=== PATIENT | female | born 1960 | race Caucasian/White ===

== ENCOUNTER 2016-10-11 08:20 | Inpatient (IN) | payer OTHER ==
[2016-10-06 10:11] LABS: BASOPHILS 0.1 %; BASOPHILS ABSOLUTE 0.01 10/3/uL (0.0-0.16); EOSINOPHILS 2.2 %; EOSINOPHILS ABSOLUTE 0.19 10/3/uL (0.0-0.53); HEMATOCRIT 40.1 % (36.0-48.0); IMMATURE GRANULOCYTES 0.2 %; IMMATURE GRANULOCYTES ABSOLUTE 0.02 10/3/uL (0.0-0.11); LYMPHOCYTES 28.7 %; LYMPHOCYTES ABSOLUTE 2.52 10/3/uL (0.67-4.30); MANUAL DIFF NO %; MEAN CORPUS HGB CONC 32.4 g/dL (32.0-36.0); MEAN CORPUSCULAR HEMOGLOB 27.4 pg (26.0-34.0); MEAN CORPUSCULAR VOLUME 84.4 fL (80-100); MEAN PLATELET VOLUME 9.6 fL (9.2-13.0); MONOCYTES ABSOLUTE 0.44 10/3/uL (0.21-1.20); NEUTROPHILS 63.8 %; NEUTROPHILS ABSOLUTE 5.61 10/3/uL (2.02-8.40); PLATELET COUNT 234 10/3/uL (150-400); RED CELL COUNT 4.75 10/6/uL (4.0-5.6); WHITE BLOOD CELLS 8.8 10/3/uL (4.5-10.5)
[2016-10-06 10:18] LABS: PARTIAL THROMBO TIME 25.2 SEC (22.5-37.2); PROTIME (NOT ORD) 13.1 SEC (12.0-14.5)
[2016-10-06 10:31] LABS: A/G RATIO 0.9 (0.7-1.9); ALBUMIN 3.4 G/DL (3.5-5.0); ALKALINE PHOSPHATASE 142 U/L (45-117); BUN (BLOOD UREA NITROGEN) 18 MG/DL (6-23); CALCIUM, SERUM 8.4 MG/DL (8.5-10.4); CHLORIDE, SERUM 101 MMOL/L (96-112); CO2 (CARBON DIOXIDE) 26 MMOL/L (24-34); CREATININE 0.92 MG/DL (0.55-1.02); GFR AFRICAN AMERICAN 80 ML/MIN (>=60); GFR NON AFRICAN AMERICAN 69 ML/MIN (>=60); GLOBULIN 3.6 G/DL (2.5-4.1); GLUCOSE, SERUM 221 MG/DL (60-99); SGOT(AST) 16 U/L (5-40); SGPT(ALT) 28 U/L (5-65); SODIUM, SERUM 138 MMOL/L (135-148); TOTAL BILIRUBIN 0.3 MG/DL (0-1.2)
--- NOTE | ~2016-10-11 | PREOPHP ---
PreOp History and Physical [address] [place]. [address] NAME: TATIANA COLEY : 58 STATUS : ADM IN [facility]#: [id number] AGE: 56 ADM/REG DATE : 10/11/16 MR#: [id number] REPORT SERV DATE: 10/11/16 DICTATED BY: RANDA MONTGOMERY JR. DATE: 10/11/16 REPORT STATUS : Draft TRANSCRIBED BY: ADALID DATE: 10/11/16 CHIEF COMPLAINT: Retroperitoneal tumor. HISTORY OF PRESENT ILLNESS: This is a 56-year-old female who had presented with some left- sided discomfort and lower extremity discomfort. She was found to have at least 4 to 5 cm mass deep in the left psoas muscle. This initially was thought to be possibly lipomatous, but further review demonstrated this was indeterminate and she is admitted for resection. PAST MEDICAL HISTORY: Remarkable for history of GE reflux disease, gastritis, diabetic gastroparesis, and irritable bowel syndrome, hypercholesterolemia, cervical dysplasia, hepatitis, hypertension, COPD, tobacco use, and diabetes. PAST SURGICAL HISTORY: Remarkable for cholecystectomy, appendectomy, hysterectomy, cataract surgery, and breast reduction. MEDICATIONS: Listed and reviewed. ALLERGIES: TO SHRIMP. REVIEW OF SYSTEMS: GENERAL: Fatigue. SKIN: Negative. HEENT: Negative. NECK: Negative. RESPIRATORY: Negative. BREASTS: Negative. CARDIOVASCULAR: Negative. GI: As above with diarrhea. : Negative. MUSCULOSKELETAL: As above. NEUROLOGIC: All negative. PSYCHIATRIC: All negative. ENDOCRINE: All negative. HEMATOLOGIC: All negative. PHYSICAL EXAMINATION: GENERAL: Exam shows an obese female, who is in no acute distress. VITAL SIGNS: Recorded. HEENT: Head and neck exam shows pupils equal and reactive. No icteric changes. Mucous membranes are moist. NECK: Supple. There is no mass or thyromegaly. LUNGS: Clear bilaterally. CARDIOVASCULAR: Normal S1 and S2 without murmur. ABDOMEN: Soft, nontender and there is no palpable mass or hepatosplenomegaly. EXTREMITIES: Show no clubbing, cyanosis, or edema. NEUROLOGIC: Alert and oriented. No focal findings. Appropriate affect. IMPRESSION: Retroperitoneal tumor, indeterminate. PreOp History and Physical [address] [address] NAME: TATIANA COLEY : 58 STATUS : ADM IN PAT#: [id number] AGE: 56 ADM/REG DATE : 10/11/16 MR#: [id number] REPORT SERV DATE: 10/11/16 DICTATED BY: RANDA MONTGOMERY JR. DATE: 10/11/16 REPORT STATUS : Draft TRANSCRIBED BY: ADALID DATE: 10/11/16 PLAN: We will proceed with exploration for resection. Details of risks of the operation have been discussed with the patient. They understand and agree. PASTOR/ADALID Randa Montgomery Jr., M.D. / [id number] CC: Randa Montgomery Jr., M.D.
--- NOTE | ~2016-10-11 | OP ---
Record Of Operation [facility] [address] [place]. [address] NAME: TATIANA COLEY : 58 STATUS : ADM IN PAT#: [id number] AGE: 56 ADM/REG DATE : 10/11/16 MR#: [id number] REPORT SERV DATE: 10/11/16 DICTATED BY: RANDA BOLIVAR JR. DATE: 10/11/16 REPORT STATUS : Draft TRANSCRIBED BY: MODNolvia DATE: 10/11/16 DATE OF PROCEDURE: 10/11/2016 SURGEON: Randa Bolivar M.D. TOBACCO WEIGHER: Christi Rosado. PROCEDURE: Exploratory laparotomy resection of retroperitoneal tumor (5.5 cm). PREOPERATIVE DIAGNOSIS: Retroperitoneal tumor. POSTOPERATIVE DIAGNOSIS: Retroperitoneal tumor . ANESTHESIA: General. INDICATIONS: This patient has presented with lower extremity discomfort. Imaging demonstrated a soft tissue mass located within the left-sided psoas major muscle and the retroperitoneum. This was indeterminate by imaging. Resection was indicated for definitive diagnosis and treatment. FINDINGS: On exploration of the abdomen, there were adhesions from previous surgery. The x- rays of the retroperitoneum did show mass within the psoas muscle just medial to the upper pole of the kidney. This was excised completely without significant removal of the muscle with it. The examination with pathology showed a low-grade schwannoma. No other apparent findings were seen. The outlines excision site were marked with clips. DESCRIPTION OF PROCEDURE: With adequate general anesthesia, the patient was placed in supine position. The abdomen was prepped and draped sterilely. A midline incision was made. Dissection was carried down sharply through the subcutaneous tissues. The fascia and perineum were opened. Underlying adhesions were dissected sharply findings. The left colon was mobilized by attachments reflected this medially and this allowed excision of the retroperitoneum. The kidney and left ureter were identified. These were retracted laterally, and the psoas was exposed. Tumor was palpable and the muscle was then opened with electrocautery and then with blunt dissection, the mass was easily freed from the surrounding tissues and attachments divided. It was submitted to pathology as noted. Bleeders controlled with electrocautery and also with the EnSeal device and with Surgiflo. Then, the wound was closed in approximate fashion in running 0 PDS suture, subcutaneous with 3-0 Vicryl, subdermal or deep dermal with 3-0 Monocryl, and subcuticular Monocryl. An overlay negative pressure dressing was placed. The patient left the operating room in satisfactory condition. ESTIMATED BLOOD LOSS: 50 mL. J/MODL Record Of Operation [address] [address] NAME: TATIANA COLEY : 58 STATUS : ADM IN PAT#: [id number] AGE: 56 ADM/REG DATE : 10/11/16 MR#: [id number] REPORT SERV DATE: 10/11/16 DICTATED BY: RANDA BOLIVAR JR. DATE: 10/11/16 REPORT STATUS : Draft TRANSCRIBED BY: ADALID DATE: 10/11/16 Randa Bolivar Jr., M.D. / [id number] CC: Randa Bolivar Jr., M.D.
--- NOTE | ~2016-10-11 | CN ---
Consultation Report [facility] [address] [place]. [address] NAME: TATIANA COLEY : 58 STATUS : ADM IN [facility]#: [id number] AGE: 56 ADM/REG DATE : 10/11/16 MR#: [id number] REPORT SERV DATE: 10/13/16 DICTATED BY: DATE: REPORT STATUS : Draft TRANSCRIBED BY: MODL DATE: 10/13/16 CONSULTATION DATE OF CONSULTATION: REASON FOR CONSULTATION: Acute kidney injury. HISTORY OF PRESENT ILLNESS: Ms. Coley is a 56-year-old white female, who presented to the hospital on 10/11/2016 for an elective removal of the retroperitoneal tumor by Dr. Montgomery. Her baseline creatinine looked to be 0.7 to 0.9. Creatinine day of this consultation up to 2.7. Denies any history of kidney disease in the past, but does have extensive history that includes diabetes, hypertension, and cardiomyopathy with EF of 35%, recent negative heart catheterization. 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 Denies any shortness of breath, chest pain, tightness, or pressure. No nausea, vomiting, and still sedated with pain medicine postoperatively. Has had a Kaplan since surgery. PAST MEDICAL HISTORY: Diabetes, hypertension, COPD, hyperlipidemia, hepatitis, irritable bowel syndrome, reflux, gastroparesis, cholecystectomy, appendectomy, hysterectomy, breast reduction. ALLERGIES: SHELLFISH. SOCIAL HISTORY: . Quit smoking approximately forty days prior to the consultation. No alcohol or illicit drug use. MEDICATIONS: At the time of consultation, losartan which was stopped just prior to my consultation, pravastatin, Protonix, paroxetine, insulin, heparin, and Coreg. FAMILY MEDICAL HISTORY: Negative for any end-stage renal disease. REVIEW OF SYSTEMS: 12-point review of systems was obtained, negative with the exception of that in HPI. PHYSICAL EXAMINATION: VITAL SIGNS: Temp 97.2, blood pressure 112/49, pulse 70, respiratory rate 18, O2 saturation 96% on 4 L. GENERAL: This is a pleasant cooperative white female. Awake, alert, oriented, but very drowsy. HEENT: Normocephalic, atraumatic. Conjunctivae clear. Sclerae anicteric. Pupils are equal and round. Oral mucosa is moist. NECK: Supple. Carotids are brisk. Neck veins flat. No lymphadenopathy. Neck is very thick. Consultation Report [facility] [address] [place]. [address] NAME: TATIANA COLEY : 58 STATUS : ADM IN PAT#: [id number] AGE: 56 ADM/REG DATE : 10/11/16 MR#: [id number] REPORT SERV DATE: 10/13/16 DICTATED BY: DATE: REPORT STATUS : Draft TRANSCRIBED BY: MODL DATE: 10/13/16 RESPIRATIONS: Even and labored. She has rhonchi throughout. HEART: Rate is regular. I did not hear any murmur, rub, or gallop. ABDOMEN: Obese soft, and postop tenderness. I could not hear any bowel sounds. No CVA tenderness. BACK: Within normal limits. EXTREMITIES: No edema, cyanosis, or clubbing. Kaplan to bedside drainage. NEURO: Generalized weakness. Mood and affect, flat, but appropriate. PERTINENT LABS AND X-RAYS: Sodium 135, potassium 5, chloride 99, BUN of 33, creatinine of 2.7, calcium 8.1, magnesium 2.5. WBCs 11.6, H and H 11 and 35, platelets 254,000. IMPRESSION: 1. Oliguric acute kidney injury. 2. Hypotension. 3. Cardiomyopathy with EF of 35%. 4. Status post retroperitoneal tumor removal, postop day 1. 5. Diabetes. 6. Hypertension. 7. Chronic obstructive pulmonary disease. PLAN: Diuretic challenge. She has already had 2.8 L of IV fluids. Stat labs. Stat chest x ray. Follow I's and O's. No indication for renal replacement therapy at this time. We will follow up on the studies. ARB has been held. We will follow along with you. Thank you for the consultation. GALEN/ADALID ARI Salas / [id number] CC: Rafael Rubio Jr., M.D.
--- NOTE | ~2016-10-11 | DS ---
Discharge Summary [facility] [address] [place]. [address] NAME: TATIANA COLEY : 58 STATUS : DIS IN PAT#: [id number] AGE: 56 ADM/REG DATE : 10/11/16 MR#: [id number] REPORT SERV DATE: 10/26/16 DICTATED BY: RANDA BOLIVAR JR. DATE: 10/25/16 REPORT STATUS : Draft TRANSCRIBED BY: ADALID DATE: 10/25/16 Data Collection from hospitalization DISCHARGE DIAGNOSES: 1. Retroperitoneal tumor. 2. Diabetes. 3. Hypertension. 4. Gastroesophageal reflux disease. 5. Gastritis. 6. Diabetic gastroparesis. 7. Irritable bowel syndrome. 8. Hypercholesterolemia. 9. Cervical dysplasia. 10.Hepatitis. 11.Chronic obstructive pulmonary disease. 12.Tobacco use. CONSULTATION: AMARI Salas PROCEDURES PERFORMED: Exploratory laparotomy, resection of retroperitoneal tumor (5.5 cm), 10/11/2016. PATHOLOGY: Soft tissue excision, retroperitoneal tumor-schwannoma. DISCHARGE MEDICATIONS: ProAir one puff via inhaler daily as needed, aspirin 81 mg every day at bedtime, Tessalon 200 mg three times a day as needed, Coreg 6.25 mg twice a day, Questran Light one packet twice a day as needed, erythromycin 250 mg at bedtime, Amaryl 1 mg every morning, hydrochlorothiazide 25 mg every evening, Glucophage XR 1500 mg with supper, Prilosec 40 mg every day at bedtime, Percocet 5/325 one to two tablets every six hours as needed, Paxil 30 mg every morning, Pravachol 40 mg at bedtime, and Ambien 10 mg at bedtime. CONDITION AT DISCHARGE: Stable. DISPOSITION: The patient was discharged home on a soft diet with activities as instructed. She would follow up with me one week following discharge. HOSPITAL COURSE: This is a 56-year-old female, who had presented with some left-sided discomfort and lower extremity discomfort. She was found to have at least a 4-5 cm mass, deep in the left psoas muscle. This initially was thought to be mostly lipomatous, but further review demonstrated this was indeterminate. Treatment options were discussed and it was elected to proceed with surgical intervention. She was admitted to the hospital at this time for further evaluation and treatment. Upon admission, she was taken to the operating room, where she underwent the above-mentioned procedure. She tolerated this well and there were no complications. On postop day one, she had some hypotension. Urine output was marginal. Her abdomen was soft and wound VAC was in place. Fluids were increased. GLADIS inhibitor was stopped. She had very good pain control. On postop day two, she continued to do well. She was seen by Chiquita Burk regarding acute Discharge Summary [address] [address] NAME: TATIANA COLEY : 58 STATUS : DIS IN PAT#: [id number] AGE: 56 ADM/REG DATE : 10/11/16 MR#: [id number] REPORT SERV DATE: 10/26/16 DICTATED BY: RANDA BOLIVAR JR. DATE: 10/25/16 REPORT STATUS : Draft TRANSCRIBED BY: ADALID DATE: 10/25/16 kidney injury. Her creatinine had increased to 2.7. She denies any history of kidney disease in the past, but she does have an extensive history that includes diabetes, hypertension, and cardiomyopathy with ejection fraction of 35%. She had a recent negative cardiac catheterization. She has had a Kaplan catheter since surgery. Diuretic challenge was being performed. She had already received 2.8 L of IV fluids. Labs were going to be obtained as well as a chest x-ray. There was no indication for renal replacement therapy at this time. Bumex was continued. On the , her abdomen was soft. She was progressing satisfactorily. The epidural catheter was removed. Discharge planning was performed. The next day, her diet was advanced. Discharge planning continued. She was started on full liquids. Her wounds looked good. She was evaluated by Physical Therapy. On 10/16/2016, discharge instructions were given. Due to her improved and stable condition, she was discharged home with the above-stated instructions. Information collected by: Gisel Pierce I submit the above information as my discharge summary. EMILIANO/ADALID Randa Bolivar Jr., M.D. / [id number] CC: Randa Bolivar Jr., M.D. Jordi Oliveira M.D. Chiquita Burk, ANESTHESIA RESIDENT
[~2016-10-11 08:20] MED LIST: AMARYL1 MG PO; AMB10 PO; ASAB PO; COREG6 PO; COZ50 PO; ERY-TAB250 MG PO; GLUCOPHXR7 PO; HYDROCHLOROT25 MG PO; NORV5 PO; PAXIL30 MG PO; PRAVACHOL40 MG PO; PRILOSEC40 MG PO; PROAIRRESP INH; QUESLITE PO; SUCR PO; TESSALON200 MG PO; VENTOLIN HFA INH
[2016-10-11 14:46] LABS: HEMATOCRIT 39.8 % (36.0-48.0); MEAN CORPUS HGB CONC 32.7 g/dL (32.0-36.0); MEAN CORPUSCULAR HEMOGLOB 27.7 pg (26.0-34.0); MEAN CORPUSCULAR VOLUME 84.9 fL (80-100); MEAN PLATELET VOLUME 9.5 fL (9.2-13.0); PLATELET COUNT 283 10/3/uL (150-400); RBC DISTRIBUTION WIDTH 15.1 % (12.0-16.0); RED CELL COUNT 4.69 10/6/uL (4.0-5.6)
[2016-10-11 14:47] LABS: MANUAL DIFF YES %; WHITE BLOOD CELLS 18.4 10/3/uL (4.5-10.5)
[2016-10-11 15:11] LABS: BAND NEUTROPHILS 6 %; EOSINOPHILS 2 %; EOSINOPHILS ABSOLUTE (CALC) 0.37 10/3/uL (0.0-0.53); LYMPHOCYTES 7 %; LYMPHOCYTES ABSOLUTE (CALC) 1.29 10/3/uL (0.67-4.30); MONOCYTES 6 %; NEUTROPHILS ABSOLUTE (CALC) 15.64 10/3/uL (2.02-8.40); PLATELET ESTIMATE ADQ (ADEQUATE); POLYCHROMASIA 1+ (2-5/OIF) (0-1/OIF); SEGMENTED NEUTROPHIL (0) 79 %; TOTAL NUCLEATED CELLS 100
[2016-10-11 15:18] LABS: CALCIUM, SERUM 8.3 MG/DL (8.5-10.4); CHLORIDE, SERUM 98 MMOL/L (96-112); CO2 (CARBON DIOXIDE) 26 MMOL/L (24-34); CREATININE 0.93 MG/DL (0.55-1.02); GFR AFRICAN AMERICAN 79 ML/MIN (>=60); GFR NON AFRICAN AMERICAN 68 ML/MIN (>=60); GLUCOSE, SERUM 229 MG/DL (60-99); POTASSIUM, SERUM 4.8 MMOL/L (3.5-5.3); SODIUM, SERUM 134 MMOL/L (135-148)
[2016-10-11 15:20] LABS: BUN (BLOOD UREA NITROGEN) 23 MG/DL (6-23)
[2016-10-12 06:49] LABS: BASOPHILS 0.1 %; BASOPHILS ABSOLUTE 0.01 10/3/uL (0.0-0.16); EOSINOPHILS 0.1 %; EOSINOPHILS ABSOLUTE 0.01 10/3/uL (0.0-0.53); HEMATOCRIT 35.1 % (36.0-48.0); HEMOGLOBIN 11.1 g/dL (12.0-16.0); IMMATURE GRANULOCYTES 0.3 %; IMMATURE GRANULOCYTES ABSOLUTE 0.03 10/3/uL (0.0-0.11); LYMPHOCYTES 12.6 %; LYMPHOCYTES ABSOLUTE 1.46 10/3/uL (0.67-4.30); MANUAL DIFF NO %; MEAN CORPUS HGB CONC 31.6 g/dL (32.0-36.0); MEAN CORPUSCULAR HEMOGLOB 27.5 pg (26.0-34.0); MEAN CORPUSCULAR VOLUME 86.9 fL (80-100); MEAN PLATELET VOLUME 9.5 fL (9.2-13.0); MONOCYTES 7.6 %; MONOCYTES ABSOLUTE 0.88 10/3/uL (0.21-1.20); NEUTROPHILS 79.3 %; NEUTROPHILS ABSOLUTE 9.17 10/3/uL (2.02-8.40); PLATELET COUNT 254 10/3/uL (150-400); RBC DISTRIBUTION WIDTH 15.6 % (12.0-16.0); RED CELL COUNT 4.04 10/6/uL (4.0-5.6); WHITE BLOOD CELLS 11.6 10/3/uL (4.5-10.5)
[2016-10-12 07:01] LABS: A/G RATIO 0.8 (0.7-1.9); ALBUMIN 3.2 G/DL (3.5-5.0); CALCIUM, SERUM 8.1 MG/DL (8.5-10.4); CHLORIDE, SERUM 99 MMOL/L (96-112); CO2 (CARBON DIOXIDE) 25 MMOL/L (24-34); GLOBULIN 3.8 G/DL (2.5-4.1); GLUCOSE, SERUM 217 MG/DL (60-99); SGOT(AST) 34 U/L (5-40); SGPT(ALT) 29 U/L (5-65); SODIUM, SERUM 135 MMOL/L (135-148); TOTAL BILIRUBIN 0.4 MG/DL (0-1.2)
[2016-10-12 07:02] LABS: ALKALINE PHOSPHATASE 117 U/L (45-117); BUN (BLOOD UREA NITROGEN) 33 MG/DL (6-23); CREATININE 2.77 MG/DL (0.55-1.02); GFR AFRICAN AMERICAN 21 ML/MIN (>=60); GFR NON AFRICAN AMERICAN 18 ML/MIN (>=60)
[2016-10-12 17:34] LABS: ASCORBIC ACID (UR NOT ORDER) NEG (NEG); BILIRUBIN, URINE NEGATIVE (NEG); KETONE, URINE NEGATIVE (NEG); LEUKOCYTE ESTERASE(NOT OR MOD (NEG); WBC (NOT ORDERED) (RFLEX) 30 (0-5)
[2016-10-12 17:54] LABS: ALBUMIN 3.4 G/DL (3.5-5.0); BUN (BLOOD UREA NITROGEN) 36 MG/DL (6-23); CALCIUM, SERUM 7.8 MG/DL (8.5-10.4); CHLORIDE, SERUM 97 MMOL/L (96-112); CO2 (CARBON DIOXIDE) 27 MMOL/L (24-34); CREATININE 2.89 MG/DL (0.55-1.02); GFR AFRICAN AMERICAN 20 ML/MIN (>=60); GFR NON AFRICAN AMERICAN 17 ML/MIN (>=60); PHOSPHORUS, SERUM 5.8 MG/DL (2.5-4.5); SODIUM, SERUM 136 MMOL/L (135-148)
[2016-10-12 17:55] LABS: GLUCOSE, SERUM 155 MG/DL (60-99)
[2016-10-13 07:31] LABS: BASOPHILS 0.1 %; BASOPHILS ABSOLUTE 0.01 10/3/uL (0.0-0.16); EOSINOPHILS 0.2 %; EOSINOPHILS ABSOLUTE 0.02 10/3/uL (0.0-0.53); HEMOGLOBIN 9.6 g/dL (12.0-16.0); IMMATURE GRANULOCYTES 0.3 %; IMMATURE GRANULOCYTES ABSOLUTE 0.04 10/3/uL (0.0-0.11); LYMPHOCYTES 11.4 %; LYMPHOCYTES ABSOLUTE 1.39 10/3/uL (0.67-4.30); MEAN CORPUS HGB CONC 32.9 g/dL (32.0-36.0); MEAN CORPUSCULAR HEMOGLOB 28.3 pg (26.0-34.0); MEAN CORPUSCULAR VOLUME 86.1 fL (80-100); MEAN PLATELET VOLUME 9.6 fL (9.2-13.0); MONOCYTES 7.7 %; MONOCYTES ABSOLUTE 0.94 10/3/uL (0.21-1.20); NEUTROPHILS 80.3 %; NEUTROPHILS ABSOLUTE 9.79 10/3/uL (2.02-8.40); PLATELET COUNT 210 10/3/uL (150-400); RBC DISTRIBUTION WIDTH 15.7 % (12.0-16.0); RED CELL COUNT 3.39 10/6/uL (4.0-5.6); WHITE BLOOD CELLS 12.2 10/3/uL (4.5-10.5)
[2016-10-13 07:32] LABS: HEMATOCRIT 29.2 % (36.0-48.0); MANUAL DIFF NO %
[2016-10-13 07:50] LABS: A/G RATIO 0.9 (0.7-1.9); ALBUMIN 3.1 G/DL (3.5-5.0); ALKALINE PHOSPHATASE 106 U/L (45-117); BUN (BLOOD UREA NITROGEN) 40 MG/DL (6-23); CHLORIDE, SERUM 97 MMOL/L (96-112); CO2 (CARBON DIOXIDE) 26 MMOL/L (24-34); CREATININE 2.15 MG/DL (0.55-1.02); GFR AFRICAN AMERICAN 29 ML/MIN (>=60); GFR NON AFRICAN AMERICAN 25 ML/MIN (>=60); GLOBULIN 3.6 G/DL (2.5-4.1); GLUCOSE, SERUM 185 MG/DL (60-99); PHOSPHORUS, SERUM 5.1 MG/DL (2.5-4.5); POTASSIUM, SERUM 4.4 MMOL/L (3.5-5.3); SGOT(AST) 41 U/L (5-40); SGPT(ALT) 13 U/L (5-65); SODIUM, SERUM 134 MMOL/L (135-148); TOTAL BILIRUBIN 0.4 MG/DL (0-1.2); TOTAL PROTEIN 6.7 G/DL (6.0-8.5)
[2016-10-14 04:03] LABS: ALBUMIN 2.9 G/DL (3.5-5.0); CHLORIDE, SERUM 99 MMOL/L (96-112); CO2 (CARBON DIOXIDE) 27 MMOL/L (24-34); GLUCOSE, SERUM 188 MG/DL (60-99); POTASSIUM, SERUM 4.4 MMOL/L (3.5-5.3); SODIUM, SERUM 136 MMOL/L (135-148)
[2016-10-14 04:06] LABS: BUN (BLOOD UREA NITROGEN) 45 MG/DL (6-23); CREATININE 1.53 MG/DL (0.55-1.02); GFR AFRICAN AMERICAN 43 ML/MIN (>=60); GFR NON AFRICAN AMERICAN 37 ML/MIN (>=60); PHOSPHORUS, SERUM 3.7 MG/DL (2.5-4.5)
[2016-10-15 07:00] LABS: BASOPHILS 0.1 %; BASOPHILS ABSOLUTE 0.01 10/3/uL (0.0-0.16); EOSINOPHILS 1.4 %; EOSINOPHILS ABSOLUTE 0.12 10/3/uL (0.0-0.53); HEMOGLOBIN 9.2 g/dL (12.0-16.0); IMMATURE GRANULOCYTES 0.5 %; IMMATURE GRANULOCYTES ABSOLUTE 0.04 10/3/uL (0.0-0.11); LYMPHOCYTES 18.4 %; LYMPHOCYTES ABSOLUTE 1.63 10/3/uL (0.67-4.30); MEAN CORPUSCULAR HEMOGLOB 30.9 pg (26.0-34.0); MEAN CORPUSCULAR VOLUME 85.6 fL (80-100); MEAN PLATELET VOLUME 10.4 fL (9.2-13.0); MONOCYTES 6.9 %; MONOCYTES ABSOLUTE 0.61 10/3/uL (0.21-1.20); NEUTROPHILS 72.7 %; NEUTROPHILS ABSOLUTE 6.44 10/3/uL (2.02-8.40); RED CELL COUNT 2.98 10/6/uL (4.0-5.6); WHITE BLOOD CELLS 8.9 10/3/uL (4.5-10.5)
[2016-10-15 07:01] LABS: HEMATOCRIT 25.5 % (36.0-48.0); MANUAL DIFF NO %; MEAN CORPUS HGB CONC 36.1 g/dL (32.0-36.0); PLATELET COUNT 609 10/3/uL (150-400)
[2016-10-15 07:31] LABS: ALBUMIN 2.8 G/DL (3.5-5.0); BUN (BLOOD UREA NITROGEN) 45 MG/DL (6-23); CALCIUM, SERUM 8.3 MG/DL (8.5-10.4); CHLORIDE, SERUM 101 MMOL/L (96-112); CO2 (CARBON DIOXIDE) 30 MMOL/L (24-34); CREATININE 1.18 MG/DL (0.55-1.02); GFR AFRICAN AMERICAN 59 ML/MIN (>=60); GFR NON AFRICAN AMERICAN 51 ML/MIN (>=60); GLUCOSE, SERUM 163 MG/DL (60-99); POTASSIUM, SERUM 4.4 MMOL/L (3.5-5.3); SODIUM, SERUM 138 MMOL/L (135-148)
[2016-10-15 07:32] LABS: PHOSPHORUS, SERUM 2.4 MG/DL (2.5-4.5)
[2016-10-16 06:28] LABS: BASOPHILS 0.2 %; BASOPHILS ABSOLUTE 0.02 10/3/uL (0.0-0.16); EOSINOPHILS ABSOLUTE 0.17 10/3/uL (0.0-0.53); HEMOGLOBIN 9.4 g/dL (12.0-16.0); IMMATURE GRANULOCYTES 0.3 %; IMMATURE GRANULOCYTES ABSOLUTE 0.03 10/3/uL (0.0-0.11); LYMPHOCYTES 22.7 %; LYMPHOCYTES ABSOLUTE 1.97 10/3/uL (0.67-4.30); MEAN PLATELET VOLUME 9.9 fL (9.2-13.0); MONOCYTES 7.6 %; MONOCYTES ABSOLUTE 0.66 10/3/uL (0.21-1.20); NEUTROPHILS 67.2 %; NEUTROPHILS ABSOLUTE 5.82 10/3/uL (2.02-8.40); RBC DISTRIBUTION WIDTH 15.3 % (12.0-16.0); WHITE BLOOD CELLS 8.7 10/3/uL (4.5-10.5)
[2016-10-16 06:30] LABS: MANUAL DIFF NO %; MEAN CORPUS HGB CONC 31.3 g/dL (32.0-36.0); MEAN CORPUSCULAR HEMOGLOB 27.6 pg (26.0-34.0); MEAN CORPUSCULAR VOLUME 88.2 fL (80-100); PLATELET COUNT 254 10/3/uL (150-400)
[2016-10-16 06:43] LABS: CALCIUM, SERUM 8.5 MG/DL (8.5-10.4); CHLORIDE, SERUM 104 MMOL/L (96-112); CO2 (CARBON DIOXIDE) 30 MMOL/L (24-34); CREATININE 0.91 MG/DL (0.55-1.02); GFR AFRICAN AMERICAN 81 ML/MIN (>=60); GFR NON AFRICAN AMERICAN 70 ML/MIN (>=60); GLUCOSE, SERUM 152 MG/DL (60-99); POTASSIUM, SERUM 4.3 MMOL/L (3.5-5.3); SODIUM, SERUM 141 MMOL/L (135-148)
[2016-10-16 06:44] LABS: BUN (BLOOD UREA NITROGEN) 37 MG/DL (6-23)
[2016-10-16] MEDS ORDERED: PCET PO (11:17)
== END 2016-10-16 13:15 | disposition home or self-care (01) | DRG 356 ==
LOC: SDC/OF 08:20 → PACU 14:25 → 2SO 17:08
PROVIDERS: Nurse Practitioner; Specialist
PROC: 3E0S3NZ Introduction of Analgesics, Hypnotics, Sedatives into Epidural Space, Percutaneous Approach (ICD-10-PCS; 2016-10-11)
PROC: 0DBW0ZZ Excision of Peritoneum, Open Approach (ICD-10-PCS; principal; 2016-10-11 10:45)
DX: D49.0 Neoplasm of unspecified behavior of digestive system (principal); N17.0 Acute kidney failure with tubular necrosis; K31.84 Gastroparesis; E11.43 Type 2 diabetes mellitus with diabetic autonomic (poly)neuropathy; K21.9 Gastro-esophageal reflux disease without esophagitis; K58.9 Irritable bowel syndrome, unspecified; E78.00 Pure hypercholesterolemia, unspecified; J44.9 Chronic obstructive pulmonary disease, unspecified; I25.5 Ischemic cardiomyopathy; F17.210 Nicotine dependence, cigarettes, uncomplicated; D36.10 Benign neoplasm of peripheral nerves and autonomic nervous system, unspecified; E78.5 Hyperlipidemia, unspecified; Z79.4 Long term (current) use of insulin; Z98.890 Other specified postprocedural states; Z91.013 Allergy to seafood
CPT/HCPCS: 36415; 71010; 71020; 80048; 80053; 80069; 81001; 82962; 83735; 85025; 85610; 85730; 86850; 86900; 86901; 87086; 88307; 88331; 88341; 88342; 93005; 97161-GP; A9270-GY; C9113; J0690; J1200; J2250; J2370; J2405; J2550; J2710; J3010; P9047